=== PATIENT | male | born 1980 ===

== ENCOUNTER 2020-10-07 14:41 | Emergency (ER) | payer SELFPAY ==
[~2020-10-07] VITALS: Ht 172.7 cm; Wt 75.0 kg
--- NOTE | 2020-10-07 14:57 | NUR ---
tavares MELENDEZ from [employer]. pt walked in, laid down and fell asleep. pt very intoxicated. vss. no complaints pt kept trying to get out of bed. very unsteady on feet. moved gurney mattress to ground and covered pt with blanket. pt now resting on mattress.
[2020-10-07 16:34] VITALS: BP 138/72
--- NOTE | 2020-10-07 16:34 | NUR ---
PT AMBULATES TO BATHROOM WITHOUT ASSISTANCE. STEADY ON FEET. FRIEND WAS CALLED AND WILL COME TO PICK PT UP.
== END 2020-10-07 17:12 | disposition home or self-care (01) ==
LOC: ED 17:06
DX: F10.120 Alcohol abuse with intoxication, uncomplicated (principal); Y90.0 Blood alcohol level of less than 20 mg/100 ml
CPT/HCPCS: 99283